=== PATIENT | male | born 1945 ===

== ENCOUNTER → 2025-01-19 | Outpatient (CLI) | payer OTHER, SELFPAY | END | disposition home or self-care (01) | PROVIDERS: PCP Urology; Referring Provider Urology; Visit Provider Student in an Organized Health Care Education/Training Program | DX: R31.9 Hematuria, unspecified (principal); R39.198 Other difficulties with micturition; T66.XXXA Radiation sickness, unspecified, initial encounter; E66.9 Obesity, unspecified; M19.90 Unspecified osteoarthritis, unspecified site; C61 Malignant neoplasm of prostate | CPT/HCPCS: 99213; G0463 ==

== ENCOUNTER → 2025-01-26 | Outpatient (CLI) | payer OTHER, SELFPAY | END | disposition home or self-care (01) | LOC: SWHD 11:02 | PROVIDERS: PCP Family Medicine; Referring Provider Family Medicine; Visit Provider Student in an Organized Health Care Education/Training Program | DX: R31.9 Hematuria, unspecified (principal); T66.XXXA Radiation sickness, unspecified, initial encounter; E66.9 Obesity, unspecified; C61 Malignant neoplasm of prostate; M13.869 Other specified arthritis, unspecified knee | CPT/HCPCS: 99212; G0463 ==

== ENCOUNTER 2025-02-24 10:16 | Outpatient (RCR) | payer OTHER, SELFPAY | END 2025-02-24 23:59 | disposition home or self-care (01) | LOC: SWHD 10:16 | PROVIDERS: PCP Family Medicine; Referring Provider Family Medicine; Visit Provider Student in an Organized Health Care Education/Training Program | DX: T66.XXXA Radiation sickness, unspecified, initial encounter (principal); Y84.2 Radiological procedure and radiotherapy as the cause of abnormal reaction of the patient, or of later complication, without mention of misadventure at the time of the procedure; R31.9 Hematuria, unspecified; E66.9 Obesity, unspecified; N30.80 Other cystitis without hematuria; M13.869 Other specified arthritis, unspecified knee; C61 Malignant neoplasm of prostate | CPT/HCPCS: 82962; 99212; G0277; G0463 ==

== ENCOUNTER 2025-03-26 09:52 | Outpatient (RCR) | payer OTHER, SELFPAY | END 2025-03-27 23:59 | disposition home or self-care (01) | LOC: SWHD 09:52 | PROVIDERS: PCP Family Medicine; Referring Provider Family Medicine; Visit Provider Physician Assistant | DX: T66.XXXA Radiation sickness, unspecified, initial encounter (principal); Y84.2 Radiological procedure and radiotherapy as the cause of abnormal reaction of the patient, or of later complication, without mention of misadventure at the time of the procedure; R31.9 Hematuria, unspecified; E66.9 Obesity, unspecified; N30.80 Other cystitis without hematuria; M13.869 Other specified arthritis, unspecified knee; C61 Malignant neoplasm of prostate | CPT/HCPCS: 99212; G0277; G0463 ==

== ENCOUNTER 2025-04-14 09:37 | Outpatient (RCR) | payer OTHER, SELFPAY | END 2025-04-26 23:59 | disposition home or self-care (01) | LOC: SWHD 09:37 | PROVIDERS: PCP Family Medicine; Referring Provider Family Medicine; Visit Provider Student in an Organized Health Care Education/Training Program | DX: T66.XXXA Radiation sickness, unspecified, initial encounter (principal); Y84.2 Radiological procedure and radiotherapy as the cause of abnormal reaction of the patient, or of later complication, without mention of misadventure at the time of the procedure; R31.9 Hematuria, unspecified; N30.80 Other cystitis without hematuria; M13.869 Other specified arthritis, unspecified knee; C61 Malignant neoplasm of prostate | CPT/HCPCS: 99212; G0277; G0463 ==